=== PATIENT | female | born 1990 | race Caucasian/White ===

== ENCOUNTER 2022-09-08 06:12 | Emergency (ER) | payer SELFPAY ==
[2022-09-08 06:38] VITALS: BP 130/83
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
== END 2022-09-08 07:19 | disposition home or self-care (01) ==
LOC: ED 06:12
DX: R51.9 Headache, unspecified (principal)
CPT/HCPCS: 99281; 99282